=== PATIENT | female | born 1980 | race Asian ===

== ENCOUNTER 2016-07-20 23:55 | Emergency (ER) | payer BC, MEDICAID ==
[~2016-07-20] VITALS: Ht 157.5 cm; Wt 72.6 kg
[2016-07-21] MEDS ORDERED: cloNIDine HCL 0.1 MG TAB ONE (00:12)
[2016-07-21] MEDS ORDERED: cloNIDine HCL 0.1 MG TAB PO ONE (03:30)
[2016-07-21 04:02] VITALS: BP 111/64
== END 2016-07-21 04:36 | disposition home or self-care (01) ==
LOC: ER 23:57
DX: N93.9 Abnormal uterine and vaginal bleeding, unspecified (principal); I10 Essential (primary) hypertension; Z76.0 Encounter for issue of repeat prescription

== ENCOUNTER 2017-01-17 01:42 | Emergency (ER) | payer BC, MEDICAID | END 2017-01-17 02:00 | disposition left against medical advice (07) | LOC: ER 01:45 | DX: R06.02 Shortness of breath (principal); Z53.21 Procedure and treatment not carried out due to patient leaving prior to being seen by health care provider ==

== ENCOUNTER 2017-04-30 10:14 | Emergency (ER) | payer BC, MEDICAID ==
[~2017-04-30] VITALS: Ht 157.5 cm; Wt 65.3 kg
[2017-04-30 10:25] VITALS: BP 143/95
== END 2017-04-30 11:13 | disposition home or self-care (01) ==
LOC: ER 10:14
DX: N39.0 Urinary tract infection, site not specified (principal); N76.0 Acute vaginitis; Z88.8 Allergy status to other drugs, medicaments and biological substances

== ENCOUNTER 2017-05-04 17:53 | Emergency (ER) | payer BC, MEDICAID ==
[~2017-05-04] VITALS: Ht 157.5 cm; Wt 65.3 kg
[2017-05-04] MEDS ORDERED: SODIUM CHLORIDE 0.9% 1,000 ML IVB ONE (20:33)
[2017-05-04] MEDS ORDERED: ONDANSETRON HCL 4 MG/2 ML VIAL IV ONE (20:45)
[2017-05-04] MEDS ORDERED: KETOROLAC TROMETH 30 MG/ML 1ML VIAL IV ONE (20:45)
[2017-05-04 21:01] LABS: Basophils # (auto) 0 uL; Basophils % (auto) 0.6 % (0.0-2.0); Eosinophils # (auto) 0.3 uL; Eosinophils % (auto) 3.8 % (0.0-7.0); Hematocrit 42.7 % (36.0-46.0); Hemoglobin 14.2 g/dL (12.2-16.2); Lymphocytes # (auto) 1.4 uL; Lymphocytes % (auto) 15.4 % (10.0-50.0); Mean Corpuscular Hemoglobin 29.2 pg (28.0-32.0); Mean Corpuscular Hgb Conc. 33.4 g/dL (32.0-36.0); Mean Corpuscular Volume 87.6 fL (80.0-100.0); Mean Platelet Volume 7.5 fL (6.9-10.8); Monocytes # (auto) 0.9 uL; Neutrophils # (auto) 6.2 uL; Neutrophils % (auto) 70.2 % (37.0-80.0); Platelet Count (auto) 292 10^3/uL (140-450); Red Cell Distribution Width 14.7 % (11.8-14.3); White Blood Cell 8.9 10^3/uL (4.4-10.8)
[2017-05-04 21:22] LABS: Albumin 3.2 g/dL (3.4-5.0); BUN/Creatinine Ratio 8.1; Bilirubin, Total 0.3 mg/dL (0.2-1.0); Calcium 8.9 mg/dL (8.5-10.1); Potassium 3.9 mmol/L (3.5-5.1)
[2017-05-04 21:38] LABS: INR 0.96 (0.9-1.15); Partial Thromboplastin Time 27.5 sec (22.64-33.71); Prothrombin Time 10.5 sec (9.37-12.3)
[2017-05-05 01:43] VITALS: BP 139/85
[2017-05-05 02:20] LABS: Urine Bilirubin Negative (Negative); Urine Blood Negative /uL (Negative); Urine Ca Oxalate Crystal MOD (None Seen); Urine Color Orange (Yellow); Urine Glucose Normal (Normal); Urine Hyaline Cast FEW /lpf (0 - 2); Urine Ketone Negative (Negative); Urine Mucus FEW (None Seen); Urine Nitrite Negative (Negative); Urine RBC 9 /hpf (0 - 4); Urine Squamous Epithelial Cell FEW /hpf (<5); Urine Urobilinogen Normal (Negative)
== END 2017-05-05 03:15 | disposition home or self-care (01) ==
LOC: ER 17:59
DX: N39.0 Urinary tract infection, site not specified (principal); J11.1 Influenza due to unidentified influenza virus with other respiratory manifestations; J44.9 Chronic obstructive pulmonary disease, unspecified; Z88.8 Allergy status to other drugs, medicaments and biological substances
CPT/HCPCS: 36415; 71010; 80053; 81001; 81025; 82150; 83690; 83735; 84702; 85025; 85610; 85730; 96361; 96374; 96375; 99285; J1885; J2405; J7030

== ENCOUNTER 2017-08-17 21:52 | Emergency (ER) | payer MEDICAID ==
[~2017-08-17] VITALS: Ht 157.5 cm; Wt 70.3 kg
[2017-08-18 07:03] LABS: Basophils # (auto) 0.1 uL; Basophils % (auto) 0.8 % (0.0-2.0); Eosinophils # (auto) 0.3 uL; Eosinophils % (auto) 4.2 % (0.0-7.0); Hematocrit 45.7 % (36.0-46.0); Hemoglobin 15.4 g/dL (12.2-16.2); Lymphocytes # (auto) 1.6 uL; Lymphocytes % (auto) 24.7 % (10.0-50.0); Mean Corpuscular Hemoglobin 29.1 pg (28.0-32.0); Mean Corpuscular Hgb Conc. 33.8 g/dL (32.0-36.0); Mean Corpuscular Volume 86.1 fL (80.0-100.0); Monocytes # (auto) 0.5 uL; Monocytes % (auto) 7.4 % (0.0-12.0); Neutrophils # (auto) 4.1 uL; Neutrophils % (auto) 62.9 % (37.0-80.0); Nucleated Red Blood Cells % 0.1 %; Platelet Count (auto) 337 10^3/uL (140-450); Red Cell Distribution Width 14.1 % (11.8-14.3); White Blood Cell 6.5 10^3/uL (4.4-10.8)
[2017-08-18 07:10] LABS: INR 0.92 (0.9-1.15); Partial Thromboplastin Time 26.6 sec (22.64-33.71)
[2017-08-18 07:17] LABS: Alanine Aminotransferase 26 U/L (13-56); Albumin 3.5 g/dL (3.4-5.0); Anion Gap 4 (5-15); Aspartate Aminotransferase 16 U/L (15-37); Blood Urea Nitrogen 13 mg/dL (7-18); Calcium 9.3 mg/dL (8.5-10.1); Carbon Dioxide 32 mmol/L (21-32); Chloride 103 mmol/L (98-107); GFR African American 147 mL/min; GFR Non-African American 121 mL/min; Glucose 103 mg/dL (74-106); Potassium 3.2 mmol/L (3.5-5.1); Sodium 139 mmol/L (136-145)
[2017-08-18 07:21] LABS: Alkaline Phosphatase 86 U/L (45-117); Bilirubin, Total 0.3 mg/dL (0.2-1.0); Total Protein 7.8 g/dL (6.4-8.2)
[2017-08-18] MEDS ORDERED: NITROGLYCERIN 0.4 MG SL TAB SL ONE (07:30)
[2017-08-18] MEDS ORDERED: ASPirin 81 mg TAB PO ONE (07:30)
[2017-08-18] MEDS ORDERED: HYDROcodone-ACET 5/325MG TAB PO ONE (08:00)
[2017-08-18 08:19] VITALS: BP 132/94
[2017-08-18] MEDS ORDERED: POTASSIUM CHL 10% (20 MEQ/15ML) 15ml ORAL SOLN PO ONE (08:30)
== END 2017-08-18 09:08 | disposition home or self-care (01) ==
LOC: ER 21:52
DX: R07.89 Other chest pain (principal); J44.9 Chronic obstructive pulmonary disease, unspecified; K21.9 Gastro-esophageal reflux disease without esophagitis; E78.5 Hyperlipidemia, unspecified; I10 Essential (primary) hypertension; R53.1 Weakness; Z79.82 Long term (current) use of aspirin; Z88.8 Allergy status to other drugs, medicaments and biological substances
CPT/HCPCS: 36415; 71045; 80053; 84484; 84702; 85025; 85610; 85730; 93005